=== PATIENT | male | born 1935 | race Caucasian/White ===

== ENCOUNTER → 2016-05-21 | Outpatient (CLI) | payer OTHER ==
[~2016-05-21] MED LIST: ALPRAZOLAM PO; ASPIRIN EC81 M1 PO; ATENOLOL PO; LIPITOR40 MG PO; MEGESTROL ACETA20 MG PO; NIFEDIAC CC60 MG PO; PRILOSEC20 MG PO; ZYRTEC PO
--- NOTE | ~2016-05-21 | US78 ---
[facility] A Service of [facility] & [facility] / [facility] RADIOLOGY TEXT RESULTS PATIENT: JENNIFER KABA LOCATION: CNIV : 34 UNIT #: [id number] AGE: [address]: Samm Anand MD SEX: M ORDER DR: [id number] [facility] [address] [place], [place] [address] [id number] O MR#: [id number] Acc #: [id number] NAME: JENNIFER KABA : 1935 SEX: M STUDY DATE/TIME: 05/21/2016 11:25 UNIT: CNIV ROOM: STUDY DESCRIPTION: US Kidney Duplex Complete Attending Physician: Samm Anand M.D. Ordering Physician: Samm Anand M.D. Primary Care Physician: Ashley August A.P.R.N. MEDICAL IMAGING REPORT This report is preliminary unless electronic signature is present EXAM Renal Doppler. INDICATION Hypertension. Patient also has a history of prostate cancer and lung cancer TECHNIQUE Coelho-scale, color Doppler, and spectral Doppler waveform analysis was performed through the kidneys. FINDINGS Fuse Coiler measures the peak systolic velocity within the midabdominal aorta at 54 cm/sec. Velocities measured throughout the right renal artery are elevated ranging from 237 cm/sec proximally to 189 cm/sec distally. These values would certainly meet criteria for renal artery stenosis. However, elevated velocities throughout the right renal artery suggest more distal stenosis but the waveforms within the patient's intrarenal vessels appear normal. Left renal artery velocities measure within normal limits ranging from 111 cm/sec proximally to 180 cm/sec distally and the renal artery to aortic ratio is within normal limits at 3.3. It is elevated, however, on the right at 4.3. Again, however, waveforms within the left kidney, I think appear preserved. I do not see any evidence of hydronephrosis. No solid or cystic renal masses are seen on either side. IMPRESSION Velocities in renal arteries, as well as renal artery to aortic ratios on the right do meet criteria for renal artery stenosis. However, velocities are elevated throughout the right renal artery are elevated, so I am uncertain as to the accuracy of these findings. If clinical concern persists for renovascular hypertension, further evaluation with CTA or MRA is suggested. Of note, MRA may be the preferred test in the patient who was noted to have fairly extensive atherosclerotic calcification of the STS. [facility] A Service of [facility] & [facility] RADIOLOGY TEXT RESULTS PATIENT: JENNIFER KABA LOCATION: IV : 34 UNIT #: [id number] AGE: [address]: Samm Anand MD SEX: M ORDER DR: renal arteries on prior studies. Dictated by... Leila Ruiz M.D. THIS IS AN ELECTRONICALLY VERIFIED REPORT Leila Ruiz M.D. at 05/22/2016 4:41 PM AFF/[employer] TD: 05/22/2016 12:48 JOB #: [id number] MEDICAL IMAGING REPORT COPY
== END | disposition home or self-care (01) ==
LOC: CNIV 10:33
DX: C34.31 Malignant neoplasm of lower lobe, right bronchus or lung (principal); C79.51 Secondary malignant neoplasm of bone; C61 Malignant neoplasm of prostate; I10 Essential (primary) hypertension; I70.1 Atherosclerosis of renal artery
CPT/HCPCS: 93975